=== PATIENT | female | born 1990 | race American Indian/Alaskan Native ===

== ENCOUNTER 2018-03-11 07:22 | Day surgery (SDC) | payer MEDICAID, OTHER ==
[2018-03-11] MEDS ORDERED: DEMEROL IV PRN ×2 (08:23→08:45)
[2018-03-11] MEDS ORDERED: ZOFRAN IV PRN (08:23)
[2018-03-11] MEDS ORDERED: DILAUDID IV PRN (08:23)
--- NOTE | 2018-03-11 08:23 | Anesthesia Consultation ---
Anesthesia Consult and Med Hx Date of service: 03/11/18 - Airway Anesthetic Teeth Evaluation: Chipped ROM Head & Neck: Adequate Mental/Hyoid Distance: Adequate Mallampati Class: Class II Intubation Access Assessment: Probably Good - Pulmonary Exam CTA: Yes - Cardiac Exam Cardiac Exam: RRR - Pre-Operative Health Status ASA Pre-Surgery Classification: ASA2 Proposed Anesthetic Plan: General - Pulmonary Hx Smoking: No Hx Asthma: No - Cardiovascular System Hx Hypertension: No Hx Heart Attack/AMI: No - Central Nervous System Hx Neuromuscular Disorder: No Hx Psychiatric Problems: No - Gastrointestinal Hx Gastroesophageal Reflux Disease: Yes (occasional, diet-related, relieved with ranitidine, no current symptoms) - Endocrine Hx Renal Disease: No Hx Liver Disease: No Hx Insulin Dependent Diabetes: No Hx Non-Insulin Dependent Diabetes: No Hx Thyroid Disease: No - Hematic Hx Anemia: No Hx Sickle Cell Disease: No - Other Systems Hx Alcohol Use: No Hx Substance Use: Yes (Marijuana on Fridays) Hx Cancer: No Hx Obesity: Yes - Additional Comments Anesthesia Medical History Comments: No GAC, No FHAC
[2018-03-11] MEDS ORDERED: SUBLIMAZE IV PRN (08:45)
[2018-03-11] MEDS ORDERED: MORPHINE IV PRN (08:45)
[2018-03-11] MEDS ORDERED: LACTATED RINGERS 1,000 ML IV SCH ×3 (09:00→10:00)
[2018-03-11] MEDS ORDERED: VERSED IV NR (09:00)
[2018-03-11] MEDS ORDERED: TORADOL ONE (09:23)
[2018-03-11] MEDS ORDERED: XYLOCAINE MPF 2% ONE (09:23)
[2018-03-11] MEDS ORDERED: SUBLIMAZE ONE ×2 (09:24→09:51)
[2018-03-11] MEDS ORDERED: DIPRIVAN 10 MG/ML IV ONE (09:24)
[2018-03-11] MEDS ORDERED: ZOFRAN ONE (09:31)
[2018-03-11] MEDS ORDERED: DECADRON ONE (09:31)
[2018-03-11] MEDS ORDERED: NACL 0.9% IR ONE (09:58)
[2018-03-11] MEDS ORDERED: DILAUDID ONE (10:27)
[2018-03-11] MEDS ORDERED: XYLOCAINE 1% 20 mL INFILTRATI ONE (10:35)
[2018-03-11] MEDS ORDERED: XYLOCAINE 1% 20 mL ONE (10:37)
[2018-03-11] MEDS ORDERED: MONSEL'S TP ONE (10:41)
--- NOTE | 2018-03-11 11:24 | Anesthesia Day of Surgery ---
Anesthesia Day of Surgery - Day of Surgery Patient Examined: Yes Patient H&P Reviewed: Yes Patient is NPO: Yes
--- NOTE | 2018-03-11 11:25 | Post Anesthesia Evaluation ---
- Post Anesthesia Evaluation Patient Participated: Yes Airway Patent: Yes Stable Respiratory Function: Yes Nausea/Vomiting: No Temp > 96.8F: Yes Pain Manageable: Yes Adequeate Hydration: Yes Anesthesia Complications: No
[2018-03-11 11:52] VITALS: BP 119/79
--- NOTE | 2018-03-11 15:46 | Operative Report ---
Operative Report Operative Report: Preoperative diagnosis: Simple rectovaginal fistula RVF). Postoperative diagnosis: same Procedure: Repair of simple rectovaginal fistula. Surgeon: Dr. Huddleston Tool Coordinator: none Anesthesia: IV sedation with LMA. IVF: RL 1 liter. EBL: negligible Complications: none Procedure details: Risk, benefits, and alternatives of the procedure were discussed in detail with the patient which included but not limited to the risk of infection, bleeding, failure of the procedure to resolve the rectovaginal fistula which can lead to the need for more surgery in the future. The patient expressed understanding, her questions were answered, and she gave informed consent. The patient was taken to the operating room with an IV fluid infusion Ringer's lactate. In the operating room, she was placed in the dorsal supine position and given IV sedation with LMA. She was then placed on the stirrups in a dorsal lithotomy position. The perineum, vagina, and cervix were washed and she was prepared and draped in usual sterile fashion. Examination under anesthesia revealed normal external genitalia, vagina and cervix. The rectovaginal fistula was located in the lower third of the vagina near the introitus. The edge of the fistula was resected using a 15 mm blade. The rectal mucosa was closed in 2 layers with 4-0 chromic sutures. Then, the vaginal mucosa was closed with 4-0 chromic sutures in 1 layer. Good hemostasis was obtained. The instruments were removed from the vagina. The counts of laps , needles, sponges, and instruments were correct 2. The patient tolerated the procedure well. She was awakened from the anesthesia and taken to the recovery room in a stable condition
== END 2018-03-11 12:45 | disposition home or self-care (01) ==
LOC: OR 07:22
PROVIDERS: ATTEND Obstetrics & Gynecology
DX: N82.3 Fistula of vagina to large intestine (principal); N89.8 Other specified noninflammatory disorders of vagina; K21.9 Gastro-esophageal reflux disease without esophagitis; E66.9 Obesity, unspecified; Z68.41 Body mass index [BMI] 40.0-44.9, adult; Z98.890 Other specified postprocedural states; Z91.010 Allergy to peanuts; Z91.013 Allergy to seafood
CPT/HCPCS: 57300; 81025; 88302; 88304; J1100; J1170; J1885; J2250; J2405; J2704; J3010; J7120; 88305

== ENCOUNTER 2019-03-04 21:53 | Emergency (ER) | payer OTHER ==
--- NOTE | 2019-03-04 22:30 | Emergency Department Report ---
Chief Complaint: Dental/Oral Stated Complaint: LT ABSCESS JAW - HPI History of Present Illness: 28yo BF c/o L jaw pain x 3 days but worsened today. - Exam Vital Signs: Vital Signs 03/04/19 03/04/19 22:04 22:25 Temperature 98.0 F Pulse Rate 89 Respiratory 16 Rate Blood Pressure 185/110 176/108 O2 Sat by Pulse 100 Oximetry MSE screening note: Focused history and physical exam performed. Due to findings the following was ordered: ED Disposition for MSE Condition: Stable
--- NOTE | 2019-03-05 01:10 | Emergency Department Report ---
ED ENT HPI - General Chief complaint: Dental/Oral Stated complaint: LT ABSCESS JAW Time Seen by Provider: 03/05/19 00:35 Source: patient Mode of arrival: Ambulatory Limitations: No Limitations - History of Present Illness Initial comments: Patient is a 28-year-old female who presents to the emergency room with complaints of left lower dental pain that began 2-3 days ago. States that she cracked her tooth approximately 6 months ago on the left lower side. she says that she has noticed a lump to the left gum for the last couple days. States that she last saw dentist a year ago. she denies any fever, chills, vomiting, diarrhea. Denies any past medical history or allergies medications. She states her last menstrual cycle was February 01. pt denies any chance of . - Related Data Previous Rx's Medication Instructions Recorded Last Taken Type Clindamycin [Clindamycin CAP] 450 mg PO TID 7 Days #63 capsule 03/05/19 Unknown Rx Ibuprofen [Motrin 600 MG tab] 600 mg PO Q8H PRN #14 tablet 03/05/19 Unknown Rx Allergies Allergy/AdvReac Type Severity Reaction Status Date / Time peanut Allergy Swelling Verified 03/07/18 17:18 shellfish derived Allergy Swelling Verified 03/07/18 17:18 ED Dental HPI - General Chief complaint: Dental/Oral Stated complaint: LT ABSCESS JAW Time Seen by Provider: 03/05/19 00:35 Source: patient Mode of arrival: Ambulatory Limitations: No Limitations - Related Data Previous Rx's Medication Instructions Recorded Last Taken Type Clindamycin [Clindamycin CAP] 450 mg PO TID 7 Days #63 capsule 03/05/19 Unknown Rx Ibuprofen [Motrin 600 MG tab] 600 mg PO Q8H PRN #14 tablet 03/05/19 Unknown Rx Allergies Allergy/AdvReac Type Severity Reaction Status Date / Time peanut Allergy Swelling Verified 03/07/18 17:18 shellfish derived Allergy Swelling Verified 03/07/18 17:18 ED Review of Systems ROS: Stated complaint: LT ABSCESS JAW Other details as noted in HPI Comment: All other systems reviewed and negative ED Past Medical Hx - Past Medical History Previous Medical History?: Yes Hx Hypertension: No Hx Heart Attack/AMI: No Hx GERD: Yes Hx Liver Disease: No Hx Renal Disease: No Hx Sickle Cell Disease: No Hx Headaches / Migraines: Yes (Migraines) Hx Asthma: No - Surgical History Past Surgical History?: No - Social History Smoking Status: Current Every Day Smoker Substance Use Type: None - Medications Home Medications: Home Medications Medication Instructions Recorded Confirmed Last Taken Type Clindamycin [Clindamycin CAP] 450 mg PO TID 7 Days #63 capsule 03/05/19 Unknown Rx Ibuprofen [Motrin 600 MG tab] 600 mg PO Q8H PRN #14 tablet 03/05/19 Unknown Rx ED Physical Exam - General Limitations: No Limitations General appearance: alert, in no apparent distress - Head Head exam: Present: atraumatic, normocephalic - Eye Eye exam: Present: normal appearance - ENT ENT exam: Present: normal orophraynx, mucous membranes moist, other (cracked tooth on the left lower side, area of edema present to the gumline next to the cracked tooth, uvula is midline, no uvular edema) - Respiratory Respiratory exam: Present: normal lung sounds bilaterally. Absent: respiratory distress, wheezes, rales, rhonchi, stridor, chest wall tenderness, accessory muscle use, decreased breath sounds, prolonged expiratory - Cardiovascular Cardiovascular Exam: Present: regular rate, normal rhythm, normal heart sounds. Absent: systolic murmur, diastolic murmur, rubs, gallop - Neurological Exam Neurological exam: Present: alert, oriented X3 - Psychiatric Psychiatric exam: Present: normal affect, normal mood - Skin Skin exam: Present: warm, dry, intact ED Course Vital Signs 03/04/19 03/04/19 03/05/19 22:04 22:25 01:30 Temperature 98.0 F 99 F Pulse Rate 89 78 Respiratory 16 18 Rate Blood Pressure 185/110 176/108 Blood Pressure 168/94 [Left] O2 Sat by Pulse 100 98 Oximetry ED Medical Decision Making - Medical Decision Making Patient is a 28-year-old female who presents to the emergency room with complaints of left lower dental pain that began 2-3 days ago. States that she cracked her tooth approximately 6 months ago on the left lower side. she says that she has noticed a lump to the left gum for the last couple days. States that she last saw dentist a year ago. she denies any fever, chills, vomiting, diarrhea. Denies any past medical history or allergies medications. She states her last menstrual cycle was February 01. pt denies any chance of . initial vitals with elevated bp which improved upon repeat. on exam: cracked tooth on the left lower side, area of edema present to the gumline next to the cracked tooth, uvula is midline, no uvular edema. examination consistent with small dental abscess. Patient given prescription for clindamycin and ibuprofen. advised pt to please take medication as prescribed. please follow-up with a dentist in the next 2-3 days. It is very important that you follow up with a dentist for permanent solution. return to the emergency room for any new or worsening symptoms. please follow-up with a primary care doctor in the next 2-3 days regarding elevation your blood pressure. please keep a blood pressure log and take your blood pressure 3 times a day and show this to your primary care doctor.. eat a low-sodium diet. Critical care attestation.: If time is entered above; I have spent that time in minutes in the direct care of this critically ill patient, excluding procedure time. ED Disposition Clinical Impression: Dental abscess, Cracked tooth, Elevated blood pressure reading Disposition: TO HOME OR SELFCARE Is pt being admited?: No Does the pt Need Aspirin: No Condition: Stable Instructions: Dental Abscess (ED) Additional Instructions: Please take medication as prescribed. please follow-up with a dentist in the next 2-3 days. It is very important that you follow up with a dentist for permanent solution. return to the emergency room for any new or worsening symptoms. Lease follow-up with a primary care doctor in the next 2-3 days regarding elevation your blood pressure. please keep a blood pressure log and take your blood pressure 3 times a day and show this to your primary care doctor.. eat a low-sodium diet. Prescriptions: Clindamycin [Clindamycin CAP] 450 mg PO TID 7 Days #63 capsule Ibuprofen [Motrin 600 MG tab] 600 mg PO Q8H PRN #14 tablet PRN Reason: Pain Referrals: [facility] [Outside] - 2-3 Days [facility] [Provider Group] - 2-3 Days Time of Disposition: 01:08 Print Language: INDONESIAN
[2019-03-05 02:39] VITALS: BP 168/94
== END 2019-03-05 01:30 | disposition home or self-care (01) ==
LOC: ED 21:53
DX: K03.81 Cracked tooth (principal); K04.7 Periapical abscess without sinus; K21.9 Gastro-esophageal reflux disease without esophagitis; G43.909 Migraine, unspecified, not intractable, without status migrainosus; F17.200 Nicotine dependence, unspecified, uncomplicated; Z91.010 Allergy to peanuts; Z91.013 Allergy to seafood; Z79.899 Other long term (current) drug therapy

== ENCOUNTER 2020-11-29 10:12 | Emergency (ER) | payer OTHER ==
[2020-11-29 10:28] VITALS: BP 189/112
--- NOTE | 2020-11-29 10:48 | Emergency Department Report ---
Blank Doc - Documentation Documentation: 29-year-old female that presents with chest pain, shortness of breath, left arm pain. 1- This is a initial triage assessment/medical screening only. Full assessment and work-up will be completed once the patient is in proper hospital gown, ED bed and in a private room setting. This initial assessment/diagnostic orders/clinical plan/ treatment(s) is/are subject to change based on pt's health status, clinical progression and re-assessment by fellow clinical providers in the ED. Further treatment and workup at subsequent clinical providers discretion. Patient/guardians urged not to elope from ED as their condition may be serious if not clinically assessed and managed. 2-cardiac work-up
[2020-11-29 12:01] LABS: Basophils % (Auto) 0.6 % (0.0-1.8); Eosinophils # (Auto) 0.2 K/mm3 (0.0-0.4); Eosinophils % (Auto) 3.2 % (0.0-4.3); Hematocrit 36.9 % (30.3-42.9); Hemoglobin 12.3 gm/dl (10.1-14.3); Lymphocytes # (Auto) 2.3 K/mm3 (1.2-5.4); Lymphocytes % (Auto) 31.9 % (13.4-35.0); Mean Corpuscular HGB Conc 33 % (30-34); Mean Corpuscular Volume 79 fl (79-97); Monocytes # (Auto) 0.6 K/mm3 (0.0-0.8); Monocytes % (Auto) 8.1 % (0.0-7.3); Platelet Count 261 K/mm3 (140-440); Red Blood Count 4.65 M/mm3 (3.65-5.03); Red Cell Distribution Width 14.7 % (13.2-15.2)
[2020-11-29 12:16] LABS: Partial Thromboplastin Time 30.3 Sec. (24.2-36.6)
[2020-11-29 12:21] LABS: Alanine Aminotransferase 18 units/L (7-56); Albumin 4.2 g/dL (3.9-5); BUN/Creatinine Ratio 10; Blood Urea Nitrogen 6 mg/dL (7-17); Calcium 8.9 mg/dL (8.4-10.2); Hemolysis Index 0
--- NOTE | 2020-11-29 12:40 | XRay Report ---
CHEST 2 VIEWS INDICATION / CLINICAL INFORMATION: Chest Pain. COMPARISON: None available. FINDINGS: SUPPORT DEVICES: None. HEART / MEDIASTINUM: No significant abnormality. LUNGS / PLEURA: No significant pulmonary or pleural abnormality. No pneumothorax. ADDITIONAL FINDINGS: No significant additional findings. IMPRESSION: 1. No acute findings. Signer Name: Zi Allred DO Signed: 11/29/2020 12:36 PM Workstation Name: [id number]
--- NOTE | 2020-11-30 10:51 | Electrocardiograph Report ---
[facility] Test Date: 2020-11-29 Test Time: 10:19:08 Pat Name: JASON MORA Department: Room: Gender: F Ecotherapist: FRANCESCA : 1990 Requested By: ASIYA BLANK Order Number: [id number] Reading MD: Rober Beebe Measurements Intervals [place] Rate: 74 P: 56 ID: [id number] QRS: 53 QRSD: 91 T: 55 QT: 406 QTc: 452 Interpretive Statements Sinus rhythm No previous ECG available for comparison Electronically Signed On 11-30-2020 10:51:16 EDT by Rober Beebe
== END 2020-11-29 18:46 ==
LOC: ED 10:12
DX: R07.9 Chest pain, unspecified (principal); M79.602 Pain in left arm; R06.02 Shortness of breath; Z53.21 Procedure and treatment not carried out due to patient leaving prior to being seen by health care provider
CPT/HCPCS: 36415; 71046; 80053; 83735; 84484; 84703; 85025; 85610; 85730; 93005

== ENCOUNTER 2022-01-09 09:27 | Observation (INO) | payer OTHER ==
[2022-01-09] MEDS ORDERED: LACTATED RINGERS 1,000 ML IV ONE (11:23)
[2022-01-09 11:51] LABS: Basophils # (Auto) 0.1 K/mm3 (0.0-0.1); Basophils % (Auto) 0.7 % (0.0-1.8); Eosinophils # (Auto) 0.1 K/mm3 (0.0-0.4); Eosinophils % (Auto) 1.4 % (0.0-4.3); Hematocrit 33.9 % (30.3-42.9); Hemoglobin 11.1 gm/dl (10.1-14.3); Lymphocytes # (Auto) 2.2 K/mm3 (1.2-5.4); Lymphocytes % (Auto) 23.5 % (13.4-35.0); Mean Corpuscular HGB Conc 33 % (30-34); Mean Corpuscular Volume 82 fl (79-97); Monocytes % (Auto) 10.5 % (0.0-7.3); Platelet Count 294 K/mm3 (140-440); Red Blood Count 4.14 M/mm3 (3.65-5.03); Red Cell Distribution Width 14.4 % (13.2-15.2)
[2022-01-09 12:28] VITALS: BP 112/62
--- NOTE | 2022-01-09 12:39 | Event Note ---
Date: 01/09/22 term pt of life cycle with sporadic care here for primary c/section due to previous rectovag fistula. pt is only 37.6wks with BP controlled on meds. pt failed 1hrgtt and today with BPP 8/8 and JOSH 9. pt rescheduled to have her c/section at 38.6wks. Risks, benefits and alternatives of procedure discussed with pt and pt agreed. all questions encouraged and answered. pt to return for scheduled c/s at 1:30pm on 01/16/22. Labor precaution given.
--- NOTE | 2022-01-09 13:56 | Ultrasound Report ---
ULTRASOUND OBSTETRIC LIMITED ULTRASOUND BIOPHYSICAL PROFILE INDICATION / CLINICAL INFORMATION: well being. Clinical Gestational Age (GA): 37.6 weeks.days COMPARISON: None available. FINDINGS: BREATHING MOVEMENT = 2 GROSS BODY MOVEMENT = 2 TONE = 2 QUALITATIVE AMNIOTIC FLUID VOLUME = 2 TOTAL BIOPHYSICAL SCORE = 8/8 HEART RATE (beats per minute): 145 AMNIOTIC FLUID INDEX (cm) = 9.0 (normal = 7-24 cm) PRESENTATION: Cephalic. ADDITIONAL FINDINGS: None. IMPRESSION: 1. Biophysical Score = 8/8 Signer Name: Kike Swift MD Signed: 01/09/2022 1:51 PM Workstation Name: [id number]
== END 2022-01-09 13:10 | disposition home or self-care (01) ==
LOC: INTOOBSV 09:27 → APU 09:27
PROVIDERS: ADMIT Obstetrics & Gynecology; ATTEND Obstetrics & Gynecology
DX: O26.893 Other specified pregnancy related conditions, third trimester (principal); K60.5 Anorectal fistula; Z3A.37 37 weeks gestation of pregnancy
CPT/HCPCS: 36415; 76815; 76819; 85025; 86592; 86850; 86900; 86901; G0378; J7120; G0379

== ENCOUNTER 2022-01-16 13:11 | Inpatient (IN) | payer OTHER ==
[2022-01-16] MEDS ORDERED: LACTATED RINGERS 1,000 ML ONE (14:07)
[2022-01-16] MEDS: LACTATED RINGERS 1,000 ML IV SCH ×2 (14:15→15:52)
[2022-01-16] MEDS ORDERED: NalbUPHINE 10 MG/1 ML INJ IV PRN (14:23)
[2022-01-16] MEDS ORDERED: fentaNYL 100 MCG/2 ML INJ IV PRN (14:23)
[2022-01-16] MEDS ORDERED: BUTORPHANOL 2 MG/1 ML INJ IV PRN ×2 (14:23)
[2022-01-16] MEDS ORDERED: ePHEDrine SULFATE 50 MG/1 ML INJ IV PRN (14:23)
[2022-01-16] MEDS ORDERED: ACETAMINOPHEN 325 MG TAB PO PRN ×2 (14:23→21:29)
[2022-01-16] MEDS ORDERED: ONDANSETRON 4 MG/2 ML INJ IV PRN ×3 (14:23→21:49)
[2022-01-16] MEDS ORDERED: BICITRA ORAL LIQD 30ML PO ONE (14:28)
[2022-01-16] MEDS ORDERED: FAMOTIDINE 20 MG/2 ML INJ IV ONE ×2 (14:28→18:53)
[2022-01-16] MEDS ORDERED: METOCLOPRAMIDE 10 MG/2 ML INJ IV ONE (14:28)
[2022-01-16] MEDS ORDERED: ceFAZolin/Water 2 GM/20 ML 2 GM/20 ML SYRINGE IV NR (15:00)
[2022-01-16] MEDS ORDERED: OXYTOCIN DRIP 30 UNITS/500 ML BAG IV SCH ×2 (15:00→22:00)
[2022-01-16 15:26] LABS: Basophils # (Auto) 0.1 K/mm3 (0.0-0.1); Basophils % (Auto) 0.8 % (0.0-1.8); Eosinophils # (Auto) 0.1 K/mm3 (0.0-0.4); Eosinophils % (Auto) 1.4 % (0.0-4.3); Hemoglobin 10.8 gm/dl (10.1-14.3); Lymphocytes # (Auto) 1.9 K/mm3 (1.2-5.4); Mean Corpuscular HGB Conc 35 % (30-34); Mean Corpuscular Volume 81 fl (79-97); Monocytes % (Auto) 11.7 % (0.0-7.3); Platelet Count 272 K/mm3 (140-440); Red Blood Count 3.85 M/mm3 (3.65-5.03); Red Cell Distribution Width 14.5 % (13.2-15.2)
--- NOTE | 2022-01-16 16:43 | History and Physical Report ---
History of Present Illness Date of examination: 01/16/22 Date of admission: 01/16/22 13:11 Chief complaint: Oligohydramnios, previous obstetrical 4th degree perineal laceration. History of present illness: . CAROLYNN -01/24/22. Oligo from [place] this visit. Oligohydramnios, previous obstetrical 4th degree perineal laceration. Patient rejects any attempt at vag delivery because of past experience. Past History Past Medical History: no pertinent history - Obstetrical History Expected Date of Delivery: 01/24/22 Actual Gestation: 38 Week(s) 6 Day(s) : 2 Para: 1 Medications and Allergies Allergies Allergy/AdvReac Type Severity Reaction Status Date / Time peanut Allergy Swelling Verified 01/16/22 14:19 shellfish derived Allergy Swelling Verified 01/16/22 14:19 Home Medications Medication Instructions Recorded Confirmed Last Taken Type Clindamycin [Clindamycin CAP] 450 mg PO TID 7 Days #63 capsule 03/05/19 Unknown Rx Ibuprofen [Motrin 600 MG tab] 600 mg PO Q8H PRN #14 tablet 03/05/19 Unknown Rx Active Meds: Active Medications Acetaminophen (Acetaminophen 325 Mg Tab) 650 mg PO Q4H PRN PRN Reason: Pain, Mild (1-3) Butorphanol Tartrate (Butorphanol 2 Mg/1 Ml Inj) 1 mg IV Q2H PRN PRN Reason: Pain, Moderate(4-6) LABOR PAIN Butorphanol Tartrate (Butorphanol 2 Mg/1 Ml Inj) 2 mg IV Q2H PRN PRN Reason: Pain , Severe (7-10) Ephedrine Sulfate (Ephedrine Sulfate 50 Mg/1 Ml Inj) 10 mg IV Q2M PRN PRN Reason: Hypotension Fentanyl (Fentanyl 100 Mcg/2 Ml Inj) 100 mcg IV Q2H PRN PRN Reason: Pain,Severe (7-10) LABOR PAIN Lactated Ringer's (Lactated Ringers) 1,000 mls @ 2,250 mls/hr IV PREOP ADRIANA Stop: 01/17/22 14:57 Last Admin: 01/16/22 15:52 Dose: 2,250 mls/hr Oxytocin/Sodium Chloride (Pitocin/Ns 30 Unit/500ml) 30 units in 500 mls @ 0 mls/hr IV TITR ADRIANA; Protocol Cefazolin Sodium (Ancef/Sterile Water 2 Gm/20 Ml) 2 gm in 20 mls @ 80 mls/hr IV PREOP NR; Protocol Stop: 01/16/22 23:59 Nalbuphine HCl (Nalbuphine 10 Mg/1 Ml Inj) 10 mg IV Q2H PRN PRN Reason: Pain, Moderate (4-6) Ondansetron HCl (Ondansetron 4 Mg/2 Ml Inj) 4 mg IV Q8H PRN PRN Reason: Nausea And Vomiting Review of Systems All systems: negative - Vital Signs Vital signs: Vital Signs Pulse Pulse Ox 100 H 99 01/16/22 13:44 01/16/22 13:44 Temp Pulse Resp BP Pulse Ox 98.8 F 80 16 113/76 100 01/16/22 15:58 01/16/22 16:33 01/16/22 15:58 01/16/22 14:39 01/16/22 16:33 - Physical Exam Lungs: Positive: Normal air movement Abdomen: Positive: normal appearance, soft, normal bowel sounds Extremities: Deep Tendon Reflex Grade: Normal +2 Results Result Diagrams: 01/16/22 14:25 Abnormal lab results 01/16/22 Range/Units 14:25 MCHC 35 H (30-34) % Mcclain % (Auto) 11.7 H (0.0-7.3) % Mcclain # (Auto) 1.0 H (0.0-0.8) K/mm3 All other labs normal. Assessment and Plan - Patient Problems (1) Oligohydramnios antepartum Current Visit: Yes Status: Acute (2) Obstetrical perineal laceration with delivery Current Visit: Yes Status: Acute (3) 38 weeks gestation of Current Visit: Yes Status: Acute Plan to address problem: for delivery.
[2022-01-16] MEDS ORDERED: BICITRA ORAL LIQD 30ML ONE (18:53)
[2022-01-16] MEDS ORDERED: METOCLOPRAMIDE 10 MG/2 ML INJ ONE (18:53)
[2022-01-16] MEDS ORDERED: ePHEDrine SULFATE 50 MG/1 ML INJ ONE (20:01)
[2022-01-16] MEDS ORDERED: BUPIVACAINE/PF (0.5%) 5 MG/1 ML 30 ML VIAL INFILTRATI ONE (20:01)
[2022-01-16] MEDS ORDERED: ONDANSETRON 4 MG/2 ML INJ ONE (20:01)
[2022-01-16] MEDS ORDERED: SODIUM CHLORIDE 0.9% 100 ML ONE (20:01)
[2022-01-16] MEDS ORDERED: PHENYLEPHRINE/NS 1,000 MCG/10 ML SYRINGE (OR USE) IV ONE (20:01)
[2022-01-16] MEDS ORDERED: SIMETHICONE 80 MG CHEW TAB PO PRN (21:29)
[2022-01-16] MEDS ORDERED: MORPHINE 4 MG/1 ML INJ IV PRN ×2 (21:29→21:49)
[2022-01-16] MEDS ORDERED: NALOXONE 0.4 MG/1 ML INJ IV PRN ×2 (21:29→21:49)
[2022-01-16] MEDS ORDERED: SENNOSIDES 8.6 MG TAB PO PRN (21:29)
[2022-01-16] MEDS ORDERED: MAGNESIUM HYDROXIDE (MOM) ORAL LIQD UDC PO PRN (21:29)
[2022-01-16] MEDS ORDERED: WITCH HAZEL/ GLYCERIN PAD TP PRN (21:29)
[2022-01-16] MEDS ORDERED: LANOLIN/ZINC/DIMETHICONE (LANSINOH) 7 GM TP PRN (21:29)
[2022-01-16] MEDS ORDERED: MORPHINE 2 MG/1 ML INJ IV PRN (21:29)
[2022-01-16] MEDS ORDERED: IBUPROFEN 600 MG TAB PO PRN (21:29)
[2022-01-16] MEDS ORDERED: KETOROLAC 30 MG/1 ML INJ IV PRN ×2 (21:29)
[2022-01-16] MEDS ORDERED: PROMETHAZINE 25 MG RECT SUPP PR PRN ×2 (21:29→21:49)
--- NOTE | 2022-01-16 21:38 | Operative Report ---
Operative Report Operative Report: Date of surgery: 01/16/2022 Preoperative diagnoses: Term , oligohydramnios, history of fourth degree obstetrical perineal laceration, declined vaginal delivery. Postoperative diagnoses: The same. Operation: Lower segment transverse delivery Surgeon:Buster Quiroga MD Customs Patrol Officer: Chadd Capps CRNA Anesthesia: Spinal block Estimated blood loss:600mL Complications: None Findings: Live baby girl, vertex, 7 pounds 9 ounces, Apgars 8/9. The ovaries, fallopian tubes and the uterus were all grossly normal. Procedure in detail: The patient was taken to the operating room and given a spinal block. Patient was placed in the straight supine position and a Larsen catheter was inserted. The patient was prepped in the abdomen. The drapes were placed. A timeout was done. With the go ahead from the value stream leader, a Pfannenstiel incision was made. This incision was carried across the subcutaneous layer to the fascia which was also divided transversely. The recti abdominis muscle flaps were stripped from the fascia using a combination of blunt and sharp dissections. The muscles were in the midline to gain access to the anterior parietal peritoneum which was divided after excluding any underlying viscera. The access to the peritoneal cavity was then widened by manual stretching. The bladder blade was applied. The utero vesicle peritoneal flap was divided transversely allowing the bladder to be displaced caudally. The uterine incision was placed in the lower segment transversely. The uterine incision was carried to the decidual layer. The uterine incision was extended on both sides using the bandage scissors. The amniotic sac was ruptured with clear fluid. The head was lifted out of the false maternal pelvis and delivered through the incision using fundal pressure. The airways were bulb suctioned beginning with the mouth. Continuing fundal pressure combined with traction on the mandibular processes of the jaw delivered the rest of the baby. The umbilical cord was double clamped and divided. The baby was carefully transferred to the pediatric team. The placenta was manually removed from the uterine cavity. The uterine cavity was explored and was empty of any placental remnants. The uterine incision was repaired in 2 layers with #1 Vicryl. The surgical line on the uterus was hemostatic. Blood and clots were cleared from the peritoneal cavity. The anterior parietal peritoneum was repaired with #1 Vicryl. The fascia was r epaired with #1 Vicryl. The subcutaneous layer was made hemostatic using the Bovie before the skin was closed subcuticularly with 4-0 Vicryl. There were no complications. The estimated blood loss was 600 mL. All sponges and instrument counts were correct. Patient was safely transferred to the recovery room.
[2022-01-16] MEDS ORDERED: HYDROmorphone 1 MG/1 ML INJ IV PRN ×2 (21:49)
[2022-01-16] MEDS ORDERED: PROMETHAZINE 25 MG TAB PO PRN (21:49)
--- NOTE | 2022-01-16 21:51 | Anesthesia Day of Surgery ---
Anesthesia Day of Surgery - Day of Surgery Patient Examined: Yes Patient H&P Reviewed: Yes Patient is NPO: Yes Beta Blockers: No Cardiac Clearance: No Pulmonary Clearance: No Jm's Test: N/A
--- NOTE | 2022-01-16 21:51 | Anesthesia Consultation ---
Anesthesia Consult and Med Hx Date of service: 01/16/22 - Airway Anesthetic Teeth Evaluation: Good ROM Head & Neck: Adequate Mental/Hyoid Distance: Adequate Mallampati Class: Class II Intubation Access Assessment: Probably Good - Pulmonary Exam CTA: Yes - Cardiac Exam Cardiac Exam: RRR - Pre-Operative Health Status ASA Pre-Surgery Classification: ASA2 Proposed Anesthetic Plan: Spinal Nerve Block: Med Tap - Pulmonary Hx Smoking: No Hx Asthma: No Hx Respiratory Symptoms: No SOB: No COPD: No Hx Pneumonia: No Hx Sleep Apnea: No - Cardiovascular System Hx Hypertension: Yes Hx Coronary Artery Disease: No Hx Heart Attack/AMI: No Hx Angina: No Hx Percutaneous Transluminal Coronary Angioplasty (PTCA): No Hx Cardia Arrhythmia: No Hx Pacemaker: No Hx Internal Defibrillator: No Hx Valvular Heart Disease: No Hx Heart Murmur: No Hx Peripheral Vascular Disease: No - Central Nervous System Hx Neuromuscular Disorder: No Hx Seizures: No CVA: No Hx Back Pain: No Hx Psychiatric Problems: No - Gastrointestinal Hx Ulcer: No Hx Gastroesophageal Reflux Disease: Yes (occasional, diet-related, relieved with ranitidine, no current symptoms) - Endocrine Hx Renal Disease: No Hx End Stage Renal Disease: No Hx Cirrhosis: No Hx Liver Disease: No Hx Insulin Dependent Diabetes: No Hx Non-Insulin Dependent Diabetes: No Hx Thyroid Disease: No Hx Hypothyroidism: No Hx Hyperthyroidism: No - Hematic Hx Anemia: No Hx Sickle Cell Disease: No - Other Systems Hx Alcohol Use: No Hx Substance Use: Yes (Marijuana on Fridays) Hx Cancer: No Hx Obesity: Yes
--- NOTE | 2022-01-16 21:52 | Progress Note ---
Spinal Anesthesia Block - Spinal Anesthesia Block Start Time: 20:05 Stop Time: 20:10 Performed by:: TANVI CACERES Procedure: The patient was placed in a sitting position on the OR table and monitors applied. A timeout was performed immediately prior to the start of the procedure. The patient was Prepped and draped in a sterile fashion and the skin was localized with 3 mL 1% lidocaine at L[4]-L[5] interspace. An introducer was placed into the back between L4-L5 and a 25g spinal needle was advanced into the intrathecal space until clear, free flowing CSF was observed. 1.8cc of 0.75% hyperbaric bupivacaine + 0.5mcg Precedex was injected into the intrathecal space and the spinal needle was removed. The patient tolerated the procedure well and there were no immediate complications noted.
--- NOTE | 2022-01-16 21:52 | Progress Note ---
Regional Anesthesia Block - Regional Anesthesia Block Start Time: 21:29 Stop Time: 21:35 Performed By:: TANVI CACERES Procedure: During the pre-op interview the patient agreed to and signed a consent for a TAP block for post surgical pain management. After her C/S was completed a time out was performed prior to the start of the procedure. The Trans Abdominal Plane was identified bilaterally via ultrasound. The skin was prepped bilaterally with chlorhexidine and a 22g stimuplex needle was advanced to the area between the internal oblique muscle and the trans abdominal plane. Marcaine 0.25% 30mlwas injected under ultrasound guidance on the left and right side. Negative aspiration every 5mL, There was no change in the patients heart rate or rhythm and the patient tolerated the procedure well. No apparent complications were observed.
[2022-01-16] MEDS ORDERED: fentaNYL-BUPIV 2 MCG/ML-0.125% 200 MCG/100 ML BAG EPIDURAL SCH (22:00)
[2022-01-16] MEDS: HYDROcodone/ACETAMINOPHEN 5-325 MG TAB PO PRN (23:39)
[2022-01-17] MEDS: HYDROcodone/ACETAMINOPHEN 5-325 MG TAB PO PRN ×3 (08:58→21:16)
[2022-01-17 11:01] LABS: Hematocrit 29.7 % (30.3-42.9); Hemoglobin 9.9 gm/dl (10.1-14.3)
[2022-01-17] MEDS: IBUPROFEN 800 MG TAB PO PRN ×2 (12:14→18:07)
[2022-01-17] MEDS: PRENATAL VIT27-FE FUMARATE-FOLIC ACID VIT TAB PO SCH (14:54)
--- NOTE | 2022-01-17 20:25 | Progress Note ---
Assessment and Plan A: POD 1 primary csection Elevated blood pressure ? PEC pain P: Continue care Labetalol 100mg bid ( per Dr Aguirre) [facility] labs pain management anticipated discharge in 24-48 hrs Subjective - Subjective Date of service: 01/17/22 Principal diagnosis: primary section Patient reports: appetite normal, voiding normally, flatus, pain poorly controlled (Rn to give meds), ambulating normally : doing well Objective - Vital Signs Latest vital signs: Vital Signs Temp Pulse Resp BP BP Pulse Ox Pulse Ox 01/17/22 17:16 97.6 F 88 18 126/70 97 01/17/22 08:20 97.6 F 78 18 143/89 100 01/17/22 08:10 100 01/17/22 06:10 97.5 F L 19 01/17/22 06:00 130/94 100 01/17/22 05:43 74 98 01/17/22 05:38 83 98 01/17/22 05:33 87 98 01/17/22 05:28 69 98 01/17/22 05:23 73 96 01/17/22 05:18 74 96 01/17/22 05:13 84 98 01/17/22 05:08 89 98 01/17/22 05:03 71 97 01/17/22 04:59 73 130/78 01/17/22 04:58 67 97 01/17/22 04:53 74 97 01/17/22 04:48 82 97 01/17/22 04:43 71 96 01/17/22 04:38 96 H 97 01/17/22 04:33 92 H 96 01/17/22 04:28 79 98 01/17/22 04:23 82 96 01/17/22 04:18 79 97 01/17/22 04:13 82 97 01/17/22 04:08 79 96 01/17/22 04:03 78 96 01/17/22 03:59 83 126/76 01/17/22 03:58 91 H 97 01/17/22 03:53 86 97 01/17/22 03:48 84 97 01/17/22 03:43 90 98 01/17/22 03:38 90 98 01/17/22 03:35 98 F 18 99 01/17/22 03:33 76 99 01/17/22 03:28 72 98 01/17/22 03:23 72 98 01/17/22 03:18 73 99 01/17/22 03:13 74 98 01/17/22 03:08 68 98 01/17/22 03:03 75 98 01/17/22 03:00 73 152/84 01/17/22 02:58 78 98 01/17/22 02:53 78 97 01/17/22 02:48 80 98 01/17/22 02:43 80 97 01/17/22 02:38 63 98 01/17/22 02:33 72 98 01/17/22 02:28 72 99 01/17/22 02:23 69 98 01/17/22 02:18 76 98 01/17/22 02:13 79 98 01/17/22 02:08 79 98 01/17/22 02:03 77 98 01/17/22 02:00 70 142/78 01/17/22 01:58 80 97 01/17/22 01:53 90 98 01/17/22 01:48 79 98 01/17/22 01:43 77 98 01/17/22 01:38 73 97 01/17/22 01:33 83 98 01/17/22 01:28 73 99 01/17/22 01:23 81 98 01/17/22 01:18 73 99 01/17/22 01:13 75 98 01/17/22 01:08 73 98 01/17/22 01:03 79 98 01/17/22 00:59 78 130/77 01/17/22 00:58 81 98 01/17/22 00:53 88 99 01/17/22 00:48 76 98 01/17/22 00:43 74 98 01/17/22 00:38 81 98 01/17/22 00:33 75 98 01/17/22 00:28 78 99 01/17/22 00:23 77 100 01/17/22 00:18 63 100 01/17/22 00:13 70 100 01/17/22 00:08 69 100 01/17/22 00:03 70 99 01/16/22 23:59 71 139/86 01/16/22 23:58 77 100 01/16/22 23:53 71 100 01/16/22 23:48 81 100 01/16/22 23:43 73 100 01/16/22 23:40 97.9 F 100 01/16/22 23:38 75 100 01/16/22 23:33 76 99 01/16/22 23:28 69 100 01/16/22 23:23 73 100 01/16/22 23:18 78 95 01/16/22 23:13 75 99 01/16/22 23:08 70 98 01/16/22 23:03 66 100 01/16/22 22:59 71 135/84 01/16/22 22:58 67 100 01/16/22 22:05 67 21 125/75 100 01/16/22 21:50 97.9 F 79 20 123/69 100 01/16/22 21:35 72 15 116/68 100 01/16/22 21:30 67 19 101/70 100 01/16/22 21:25 97.8 F 73 12 116/97 98 Intake and Output 01/17/22 01/17/22 01/17/22 07:59 15:59 23:59 Intake Total 960 Output Total 250 1075 350 Balance -250 -115 -350 Intake: Oral 600 Intake, Free Water 360 Output: Urine 250 1075 350 Indwelling Catheter 250 325 Uretheral ([place]) 300 Void 450 350 Other: Total, Intake Amount 480 Total, Output Amount 250 325 350 # Voids Indwelling Catheter 2 Void 1 - Exam Breasts: Present: deferred Cardiovascular: Present: Regular rate Lungs: Present: Clear to auscultation Abdomen: Present: normal appearance Uterus: Present: fundal height below umbilicus Extremities: Present: normal Deep Tendon Reflex Grade: Normal +2 Incision: Present: normal, dry, intact, dressed (removed) - Labs Labs: Abnormal lab results 01/17/22 Range/Units 10:42 Hgb 9.9 L (10.1-14.3) gm/dl Hct 29.7 L (30.3-42.9) %
[2022-01-17 22:42] LABS: Basophils % (Auto) 0.3 % (0.0-1.8); Eosinophils # (Auto) 0.2 K/mm3 (0.0-0.4); Eosinophils % (Auto) 2.2 % (0.0-4.3); Hematocrit 31.9 % (30.3-42.9); Hemoglobin 10.3 gm/dl (10.1-14.3); Lymphocytes # (Auto) 2.3 K/mm3 (1.2-5.4); Lymphocytes % (Auto) 23.1 % (13.4-35.0); Mean Corpuscular HGB Conc 32 % (30-34); Mean Corpuscular Volume 82 fl (79-97); Monocytes # (Auto) 1.1 K/mm3 (0.0-0.8); Monocytes % (Auto) 11.1 % (0.0-7.3); Platelet Count 305 K/mm3 (140-440); Red Blood Count 3.91 M/mm3 (3.65-5.03)
[2022-01-17 22:56] LABS: Alanine Aminotransferase 12 units/L (7-56); Albumin 3.2 g/dL (3.9-5); Blood Urea Nitrogen 8 mg/dL (7-17); Calcium 8.9 mg/dL (8.4-10.2); Hemolysis Index 5
[2022-01-17 22:58] LABS: BUN/Creatinine Ratio 16
[2022-01-17 23:07] LABS: Uric Acid 4.5 mg/dL (3.5-7.6)
[2022-01-18] MEDS: HYDROcodone/ACETAMINOPHEN 5-325 MG TAB PO PRN (04:15)
[2022-01-18] MEDS: PRENATAL VIT27-FE FUMARATE-FOLIC ACID VIT TAB PO SCH (09:00)
[2022-01-18] MEDS: IBUPROFEN 800 MG TAB PO PRN ×2 (09:00→18:33)
--- NOTE | 2022-01-18 13:09 | Post Anesthesia Evaluation ---
- Post Anesthesia Evaluation Patient Participated: Yes Airway Patent: Yes Stable Respiratory Function: Yes Nausea/Vomiting: No Temp > 96.8F: Yes Pain Manageable: Yes Adequeate Hydration: Yes Anesthesia Complications: No Block Receding Appropriately: Yes Patient on Ventilator: No
--- NOTE | 2022-01-18 14:08 | Progress Note ---
Assessment and Plan A: POD #2 CHTN Morbid Obesity +Covid P: Follow Routine Orders Script called to [facility] [address]; [place]: Labetalol 100mg tabs PO BID D/C Home today per patient request Follow Standard Covid Precautions RTO in One Week Subjective - Subjective Date of service: 01/18/22 Principal diagnosis: primary section Patient reports: appetite normal, voiding normally, pain well controlled, flatus, bowel movement, ambulating normally [place]: doing well, bottle feeding (and ) Objective - Vital Signs Latest vital signs: Vital Signs Temp Pulse Resp BP BP Pulse Ox Pulse Ox 01/18/22 12:54 98.2 F 86 20 113/75 100 01/18/22 09:00 86 143/88 01/18/22 08:59 98 F 86 18 143/88 100 01/18/22 08:45 100 01/18/22 04:15 18 98 01/18/22 00:06 98.3 F 76 20 134/84 100 01/17/22 22:15 98 01/17/22 21:16 86 18 130/86 99 01/17/22 21:15 99 01/17/22 19:05 99 01/17/22 17:16 97.6 F 88 18 126/70 97 Intake and Output 01/17/22 01/18/22 01/18/22 22:59 06:59 14:59 Intake Total 240 480 320 Output Total 350 Balance -110 480 320 Intake: Oral 240 480 320 Output: Urine 350 Void 350 Other: Total, Intake Amount 240 240 320 Total, Output Amount 350 # Voids Void 1 1 2 - Exam Breasts: Present: normal Cardiovascular: Present: Regular rate Lungs: Present: Clear to auscultation, Normal air movement Abdomen: Present: normal appearance, soft, normal bowel sounds Uterus: Present: normal, firm, fundal height below umbilicus Extremities: Present: normal Incision: Present: normal, dry, intact - Labs Labs: Abnormal lab results 01/17/22 01/17/22 Range/Units 22:19 22:19 MCH 26 L (28-32) pg [place] % (Auto) 11.1 H (0.0-7.3) % [place] # (Auto) 1.1 H (0.0-0.8) K/mm3 Creatinine 0.5 L (0.6-1.2) mg/dL Glucose 109 H (65-100) mg/dL Alkaline Phosphatase 159 H (35-129) units/L Lactate Dehydrogenase 280 H (91-180) units/L Total Protein 5.9 L (6.3-8.2) g/dL Albumin 3.2 L (3.9-5) g/dL
--- NOTE | 2022-01-18 14:09 | Discharge Summary ---
Providers - Providers Date of Admission: 01/16/22 13:11 Date of discharge: 01/18/22 Attending physician: ERVIN RALHP Primary care physician: ERVIN RALPH Hospitalization Reason for admission: section Delivery: Procedure: primary low transverse Episiotomy: none Laceration: none Incision: normal, dry, intact Other procedures: none complications: none Discharge diagnosis: IUP at term delivered [place] baby: female Condition at discharge: Good Disposition: 01 HOME / SELF CARE / HOMELESS Plan - Provider Discharge Summary Activity: routine, no sex for 6 weeks, no heavy lifting 4 weeks, no strenuous exercise Diet: routine Instructions: routine Additional instructions: [] Smoking cessation referral if applicable(refer to patient education folder for contact #) [] Refer to [facility]'s [facility] Booklet Call your doctor immediately for: * Fever > 100.5 * Heavy vaginal bleeding ( >1 pad per hour) * Severe persistent headache * Shortness of breath * Reddened, hot, painful area to leg or breast * Drainage or odor from incision. * Keep incision clean and dry at all times and follow doctor's instructions regarding bathing/showering - Follow up plan Follow up: ERVIN RALPH MD [Primary Care Provider] - 7 Days
[2022-01-18 21:30] VITALS: BP 127/68
== END 2022-01-18 22:00 | disposition home or self-care (01) | DRG 765 ==
LOC: LD 13:11 → OB 01-17 06:56
PROVIDERS: ADMIT Obstetrics & Gynecology; ATTEND Obstetrics & Gynecology
PROC: 10D00Z1 Extraction of Products of Conception, Low, Open Approach (ICD-10-PCS; principal; 2022-01-16)
PROC: 3E0T3BZ Introduction of Anesthetic Agent into Peripheral Nerves and Plexi, Percutaneous Approach (ICD-10-PCS; 2022-01-16)
DX: O41.03X0 Oligohydramnios, third trimester, not applicable or unspecified (principal); U07.1 COVID-19; O10.92 Unspecified pre-existing hypertension complicating childbirth; Z3A.38 38 weeks gestation of pregnancy; Z37.0 Single live birth; E66.01 Morbid (severe) obesity due to excess calories; O99.214 Obesity complicating childbirth; O98.52 Other viral diseases complicating childbirth; K21.9 Gastro-esophageal reflux disease without esophagitis; O99.62 Diseases of the digestive system complicating childbirth; Z91.010 Allergy to peanuts; Z91.013 Allergy to seafood
CPT/HCPCS: 36415; 80053; 83615; 84550; 85014; 85018; 85025; 86850; 86900; 86901; G0378; J3490; J1170; J2370; J2405; J2765; J7120